=== PATIENT | male | born 1955 | race African-American/Black ===

== ENCOUNTER 2016-12-14 12:03 | Inpatient (IN) | payer OTHER ==
--- NOTE | ~2016-12-14 | A ---
[facility] Nutrition Therapy DATE: 12/17/16 Patient: CHELSEA HAMPTON Physician: TAMARACHR Address: [address] [facility] Room/Bed: [address] [place] [address], Zip: [place] [address] Admit Date: 12/14/16 Date of : 59 Height: 5 9 Weight: 160 72.57 NUTRITIONAL ASSESSMENT: REASON: CONSULT RE: LOW RESIDUE (LOW FIBER) DIET EDUCATION 61 Y.O. MALE ADMITTED FOR COLITIS HT: 5'9", WT: 160# (73 KG), BMI: 23.6 RD PROVIDED WRITTEN AND VERBAL LOW RESIDUE (LOW FIBER) DIET EDUCATION. OF NOTE, PT FROM [place], DOES NOT SPEAK ENLGISH BUT SON ABLE TO TRANSLATE FOR PT. RD PROVIDED LIST OF FOODS TO AVOID/LIMIT AND FOODS TO INCLUDE MORE OFTEN. RD ALSO EMPHASIZED IMPLICATION AND REASONING FOR FOLLOWING SPECIFIC DIET. RD PROVIDED LIST OF FIBER CONTENT OF FOODS FOR GRADUAL PROGRESSION TO REGULAR DIET. PT REPORTED NO DIET QUESTIONS AT THIS TIME. PT DEMONSTRATED UNDERSTANDING OF THE TOPIC. RD TO REMAIN AVAILABLE. RE-CONSULT RD IF FURTHER DIET QUESTIONS/CONCERNS. RECOMMENDATIONS: 1. ENCOURAGE COMPLIANCE OF CURRENT DIET ORDER- LOW RESIDUE RD WILL F/U PER PROTOCOL Respectfully, MAGGIE BUI MS, RD, LD Food and Nutritional Services [facility] cc: client file
--- NOTE | ~2016-12-14 | HP ---
Unit #: [id number] #: [id number] Patient: CHELSEA BOLAÑOS [id number] [address] [place], [place] [address] [id number] I MR#: [id number] NAME: CHELSEA BOLAÑOS ROOM: 218 Age: 61 Sex: M Admission Date: 12/14/2016 : 1955 Attending Physician: John Craig M.D. [facility] HISTORY AND PHYSICAL HISTORY OF PRESENT ILLNESS Mr. Bolaños is a 61-year-old black male from [place] who speaks no Portuguese but his son is at the bedside who does. He has a 48-hour history of right-sided abdominal pain but no nausea or vomiting, no diarrhea or constipation, and no significant fevers, chills, or jaundice. He has not had any episodes like this, no recent weight loss, and no blood seen in stool. Patient came to the emergency room and was noted on CT scan to have abnormal examination with wall thickening of the cecum and narrowing and intense inflammatory stranding and reaction in the cecal area. There was a 3 cm fluid collection which could be either a small abscess or mass. It was hard to tell whether this could have been related to a colon neoplasm or a cecal diverticulum which had perforated or perhaps perforated appendicitis. In any event, it was contained to the right lower quadrant. PAST MEDICAL HISTORY He denies any major cardiovascular, respiratory, renal, or metabolic problems. ALLERGIES None. HOME MEDICATIONS None. SOCIAL HISTORY He is a nonsmoker, nondrinker, and no illicit drug use. He does work outside the home. PHYSICAL EXAMINATION GENERAL: A cooperative, alert, black male who seems to be resting. VITAL SIGNS: Stable. Temperature 98, pulse 96, blood pressure 100/60, and respirations 16. HEENT: Clear. No jaundice. Pupils equal and reactive to light and accommodation. CHEST: Clear to auscultation and percussion. CARDIAC: Rhythm is regular. No audible murmurs. ABDOMEN: Soft and nontender. No masses and no peritoneal signs in any quadrant except in the right lower quadrant where there is slight 1 to 2+ right lower quadrant tenderness with slight guarding. There is no rigidity. EXTREMITIES: Full range of motion. He has 1 to 2+ peripheral pulses bilaterally. No edema. Unit #: [id number] #: [id number] Patient: CHELSEA BOLAÑOS IMPRESSION This could be right-sided colitis versus inflammatory reaction with localized perforation of the appendix versus a neoplasm. The patient seems to be stable and does not appear to be septic. We will treat this patient with intravenous antibiotics at present. The patient may need laparotomy if he does not improve. If he does improve, he may eventually need colonoscopy. We will continue to follow this patient very closely. Dictated by Beth Bray/rocio TD: 12/15/2016 18:19 JOB #: [id number] HISTORY AND PHYSICAL Page 1 of 1 X Jae Maynard MD X HISTORY AND PHYSICAL
--- NOTE | ~2016-12-14 | CT2 ---
[facility] A Service of [facility] RADIOLOGY TEXT RESULTS PATIENT: CHELSEA HAMPTON LOCATION: A 218-01 : 59 UNIT #: [id number] AGE: [address]: John Craig SEX: M ORDER DR: [id number] [facility] [address] [facility]. [place], [place] [address] [id number] MR#: [id number] Acc #: [id number] NAME: CHELSEA HAMPTON : 1955 SEX: M STUDY DATE/TIME: 12/14/2016 14:22 UNIT: PITO ROOM: STUDY DESCRIPTION: CT Abd and Pelv W Cont Attending Physician: Cruz Hicks M.D. Ordering Physician: Cruz Hicks M.D. Primary Care Physician: [facility] IMAGING REPORT This report is preliminary unless electronic signature is present EXAM CT scan of the abdomen and pelvis with contrast, 12/14/2016 HISTORY Right lower quadrant abdominal pain beginning yesterday morning. TECHNIQUE Spiral CT was performed through the abdomen and pelvis following oral and intravenous contrast administration. This CT exam was performed with one or more of the following radiation dose reduction techniques: automatic exposure control, adjustment of mA and/or kV according to patient size, and iterative reconstruction. FINDINGS ABDOMEN: There is no prior CT scan of the abdomen and pelvis for comparison. The liver, spleen, pancreas, gallbladder and biliary tree, adrenal glands and kidneys are normal. PELVIS: There is diffuse thickening of the wall of the cecum with associated luminal narrowing and there is inflammatory stranding in the surrounding mesenteric fat. The visualized portions of the appendix are normal in size. The remainder of the colon is normal in course and caliber. There is a fluid collection along the inferior lateral aspect of the cecum measuring 3.2 cm x 2.4 cm which demonstrates rim enhancement but contains no gas. While this may be intraluminal it could also represent a small abscess. Differential diagnosis includes focal inflammatory or infectious colitis. Although the appendix is normal in size, ruptured appendicitis is also a consideration and clinical correlation is recommended. Given the short segment of involvement of the colon, colon neoplasm is also a consideration and clinical correlation is strongly recommended. No significant adenopathy is seen. Minimal free fluid is seen in the right pericolic gutter. Images of the lung bases demonstrate STS. [facility] A Service of [facility] RADIOLOGY TEXT RESULTS PATIENT: CHELSEA HAMPTON LOCATION: [facility] [address] : [birth year] UNIT #: [id number] AGE: [address]: John Craig SEX: M ORDER DR: fartunlar atelectasis. Findings were called to the ordering clinician at 03:00 p.m. on 12/14/2016. IMPRESSION 1. Abnormal examination demonstrating diffuse thickening of the wall of the cecum with luminal narrowing and extensive inflammatory stranding in the surrounding mesenteric fat. Additionally, there is a rim-enhancing fluid collection measuring 3.2 cm x 2.4 cm along the lateral border of the cecum. While this may be intraluminal it could also be extraluminal and could represent a small abscess despite the absence of gas. Clinical correlation recommended. As noted in the body of the report, the visualized portions of the appendix are normal in size. Differential diagnosis for the abnormality includes inflammatory or infectious colitis or ruptured appendicitis. Given the short segment of involvement of the cecum, the possibility of colon neoplasm is also raised. Clinical correlation is recommended. 2. Small amount of free fluid in the right pericolic gutter. 3. Incidental note is made of a small hiatal hernia. STAT * RESULT Dictated by... Vitaliy Allison M.D. THIS IS AN ELECTRONICALLY VERIFIED REPORT Vitaliy Allison M.D. at 12/15/2016 2:11 PM SCOOTER/kecia TD: 12/14/2016 15:07 JOB #: [id number] MEDICAL IMAGING REPORT Page 1 of 1 COPY
--- NOTE | ~2016-12-14 | DS ---
Unit #: [id number] #: [id number] Patient: CHELSEA HAMPTON [id number] [address] [place], [place] [address] [id number] I MR#: [id number] NAME: CHELSEA HAMPTON ROOM: 218 Age: 61 Sex: M Admission Date: 12/14/2016 : 1955 Discharge Date: 12/17/2016 Attending Physician: John Craig M.D. Primary Care Physician: [facility] DISCHARGE SUMMARY DISCHARGE DIAGNOSIS Inflammatory process to the cecum, cecal diverticulitis versus colitis. OPERATIVE PROCEDURES None. DISCHARGE MEDICATIONS 1. Augmentin 875 mg one p.o. b.i.d. 2. Flagyl 500 mg one p.o. b.i.d. 3. Lortab 5 mg one p.o. q.4 hours p.r.n. pain. HISTORY OF PRESENT ILLNESS AND HOSPITAL COURSE A 61-year-old white male who is admitted with right lower quadrant abdominal pain with cramps. He had undergone CT scanning which showed an inflammatory process around the cecum with questionable small abscess versus diverticulum. The appendix looked reasonably normal, although there was some inflammation around it also. The patient had 1 to 2+ tenderness initially with slight guarding. His WBC count was 12,000. He had no significant vomiting, however. I decided to observe him. Within 24 hours, the patient's symptoms began resolving on IV antibiotics. Presently, at this time, three days on IV antibiotics, the patient has made remarkable improvement. His diet has increased. His WBC count is down to 7,000. He is afebrile. His pain is gone. We will discharge the patient on oral antibiotics. He will come back to see us in the office for followup evaluation. He will need an outpatient colonoscopy. Dictated by... Jae Maynard M.D. FRANDY/cecil TD: 12/17/2016 06:08 JOB #: [id number] Unit #: [id number] #: [id number] Patient: CHELSEA HAMPTON DISCHARGE SUMMARY Page 1 of 1 X Jae Maynard MD DISCHARGE SUMMARY
[2016-12-14 13:18] LABS: BASOPHIL% 0.3 % (0-2.5); EOSINOPHIL# 0.7 X10e3 (0-0.7); EOSINOPHIL% 6.2 % (0.0-7.0); HEMATOCRIT 41.7 % (38.0-50.0); HEMOGLOBIN 13.5 gm/dL (13.0-16.0); LYMPHOCYTE# 1.5 X10e3 (1.0-3.5); LYMPHOCYTE% 12.9 % (17.0-45.0); MEAN CELL VOLUME 75.6 FL (83-96); MEAN CORPUSCULAR HEMOGLOBIN 24.6 PG (28-34); MEAN CORPUSCULAR HGB CONC 32.5 g/dL (30-36); MEAN PLATELET VOLUME 9.5 FL (6.5-11.5); MONOCYTE# 1.4 X10e3 (0-1.0); NEUTROPHIL# 8.1 X10e3 (1.5-7.1); NEUTROPHIL% 68.6 % (40-75); PLATELET COUNT 140 X10e3 (140-420); RED BLOOD COUNT 5.51 X10e (3.90-5.60); WHITE BLOOD COUNT 11.9 X10e3 (4.0-10.5)
[2016-12-14 13:19] LABS: DIFF IND NO
[2016-12-14 13:47] LABS: ALBUMIN SERUM 3.9 g/dL (3.5-5.0); BILIRUBIN, DIRECT 0.1 mg/dL (0.0-0.2); BILIRUBIN,INDIRECT 0.3 mg/dL (0.0-0.9); BILIRUBIN,TOTAL 0.4 mg/dL (0.2-2.0); BUN/CREATININE RATIO 16.25; CALCIUM SERUM 8.7 mg/dL (8.4-10.2); CREATININE SERUM 0.8 mg/dL (0.6-1.4); GLOM FILT RATE Estimated 113.4 mL/min (>60); POTASSIUM 3.5 mmol/L (3.5-5.1); PROTEIN TOTAL SERUM 7.1 g/dL (6.0-8.3)
[2016-12-14 23:47] LABS: URINE SOURCE CLEAN CATCH
[2016-12-14 23:58] LABS: URINE APPEARANCE CLEAR; URINE BILIRUBIN NEG (NEG); URINE BLOOD NEG (NEG); URINE COLOR YELLOW; URINE GLUCOSE NEG (NEG); URINE KETONE NEG (NEG); URINE LEUKOCYTE ESTERASE NEG (NEG); URINE NITRATE NEG (NEG); URINE PH 5.5 (5-8); URINE PROTEIN NEG (NEG); URINE SPECIFIC GRAVITY 1.025 (1.003-1.035); URINE UROBILINOGEN 0.2 MG/DL (NEG)
[2016-12-14 23:59] LABS: CULTURE INDICATED? NO
[2016-12-15 06:59] LABS: HEMATOCRIT 33.8 % (38.0-50.0); MEAN CELL VOLUME 74.6 FL (83-96); MEAN CORPUSCULAR HEMOGLOBIN 24.5 PG (28-34); MEAN CORPUSCULAR HGB CONC 32.8 g/dL (30-36); MEAN PLATELET VOLUME 9.5 FL (6.5-11.5); RED BLOOD COUNT 4.52 X10e (3.90-5.60); RED CELL DISTRIBUTION WIDTH 17.5 % (11.0-15.5); WHITE BLOOD COUNT 7.5 X10e3 (4.0-10.5)
[2016-12-15 07:00] LABS: HEMOGLOBIN 11.1 gm/dL (13.0-16.0)
[2016-12-15 07:29] LABS: CALCIUM SERUM 7.7 mg/dL (8.4-10.2); CREATININE SERUM 0.8 mg/dL (0.6-1.4); GLOM FILT RATE Estimated 113.4 mL/min (>60); POTASSIUM 3.5 mmol/L (3.5-5.1)
[2016-12-16 07:03] LABS: HEMATOCRIT 31.8 % (38.0-50.0); HEMOGLOBIN 10.5 gm/dL (13.0-16.0); MEAN CORPUSCULAR HEMOGLOBIN 24.7 PG (28-34); MEAN CORPUSCULAR HGB CONC 32.9 g/dL (30-36); MEAN PLATELET VOLUME 9.5 FL (6.5-11.5); RED BLOOD COUNT 4.24 X10e (3.90-5.60); RED CELL DISTRIBUTION WIDTH 17.2 % (11.0-15.5); WHITE BLOOD COUNT 6.5 X10e3 (4.0-10.5)
[2016-12-17 05:38] LABS: BASOPHIL% 0.5 % (0-2.5); EOSINOPHIL# 2.4 X10e3 (0-0.7); EOSINOPHIL% 32.3 % (0.0-7.0); HEMATOCRIT 34.6 % (38.0-50.0); HEMOGLOBIN 11.3 gm/dL (13.0-16.0); LYMPHOCYTE# 1.6 X10e3 (1.0-3.5); LYMPHOCYTE% 21.3 % (17.0-45.0); MEAN CELL VOLUME 74.9 FL (83-96); MEAN CORPUSCULAR HEMOGLOBIN 24.5 PG (28-34); MEAN CORPUSCULAR HGB CONC 32.7 g/dL (30-36); MEAN PLATELET VOLUME 9.8 FL (6.5-11.5); MONOCYTE# 0.9 X10e3 (0-1.0); MONOCYTE% 12.3 % (3.0-12.0); NEUTROPHIL# 2.5 X10e3 (1.5-7.1); NEUTROPHIL% 33.6 % (40-75); PLATELET COUNT 135 X10e3 (140-420); RED BLOOD COUNT 4.62 X10e (3.90-5.60); RED CELL DISTRIBUTION WIDTH 17.7 % (11.0-15.5); WHITE BLOOD COUNT 7.4 X10e3 (4.0-10.5)
[2016-12-17 05:41] LABS: DIFF IND YES
[2016-12-17 05:55] LABS: ANISOCYTOSIS SL; PLATELET ESTIMATE DECREASED (NORMAL)
[2016-12-17] MEDS ORDERED: AUGMENTIN PO (07:38)
[2016-12-17] MEDS ORDERED: FLAGYL PO (07:38)
[2016-12-17] MEDS ORDERED: LORTAB 5-325 M1 EACH PO (07:39)
== END 2016-12-17 15:02 | disposition home or self-care (01) | DRG 392 ==
LOC: CED 12:03 → CEDOF 15:34 → C2A 18:46
PROVIDERS: Surgery
DX: K52.9 Noninfective gastroenteritis and colitis, unspecified (principal); K57.12 Diverticulitis of small intestine without perforation or abscess without bleeding
CPT/HCPCS: 36415; 74177; 80048; 80076; 81003; 83690; 85025; 85027; 96361; 96365; 96375; 99285; J2270; J2405; J2543; J3010; Q9967